=== PATIENT | female | born 1960 | race Caucasian/White ===

== ENCOUNTER → 2024-11-28 | Outpatient (CLI) | payer MEDICARE, SELFPAY ==
--- NOTE | 2024-11-28 | XR_ITS ---
Examination: Knees standing single view TECHNIQUE: PA standing knees bilateral single view flexion Exam date and time: November 28, 2024 1452 hours INDICATIONS: Left knee pain beginning one week ago. FINDINGS: Moderate osteopenia Moderate narrowing medial joint spaces bilaterally No fractures No dislocations IMPRESSION: Moderate narrowing medial joint spaces bilaterally
--- NOTE | 2024-11-28 13:26 | XR_ITS ---
Examination: Left knee 2 views Technique one AP lateral left knee 2 views Exam date and time: November 28, 2024 1444 hours INDICATIONS: Left knee pain beginning one week ago. FINDINGS: Mild osteoarthritis medial patellofemoral joints No fracture or dislocation Meniscus calcification IMPRESSION: Mild osteoarthritis medial patellofemoral joints
== END | disposition home or self-care (01) ==
PROVIDERS: PCP Orthopaedic Surgery; Referring Provider Orthopaedic Surgery; Visit Provider Orthopaedic Surgery
DX: M17.12 Unilateral primary osteoarthritis, left knee (principal); M25.862 Other specified joint disorders, left knee; M25.861 Other specified joint disorders, right knee
CPT/HCPCS: 73560; 73565

== ENCOUNTER → 2025-03-15 | Outpatient (CLI) | payer MEDICARE, SELFPAY ==
--- NOTE | 2025-03-15 12:00 | XR_ITS ---
Exam: MRI knee without contrast, left Date and time of exam: March 15, 2025 1310 hours INDICATIONS: Medial posterior knee pain joint clicking swelling instability 8 months Technique: Multiple axial, coronal, and sagittal sections on the knee have been obtained. T2-Weighted sagittal, fat-suppressed images, TR 3,500, TE 62, T2 weighted coronal fat-saturated images, TR 3,500, TE 62 Proton density sagittal sections, TR 1800, TE 31. T-1 weighted coronal images, TR 524, TE 13.0 Findings: Medial meniscus anterior horn abnormal, horizontal linear tear communicating inner margin. Medial meniscus, body large horizontal linear tear communicating inner margin, partially extruded from the joint space Posterior horn medial meniscus large horizontal linear tear communicating inferior articular surface, sagittal image 6. Lateral meniscus anterior horn is intact Lateral meniscus, body is intact Posterior horn lateral meniscus is intact Anterior cruciate ligament moderately attenuated. Posterior cruciate ligament appears intact Knee effusion is moderate with suprapatellar joint plica Quadriceps and patellar tendons appear intact. There is no evidence of tendinosis. Inflammatory change or fracture of Hoffa's fat pad is not seen. Medial patellar facet demonstrates moderate to severe thinning. Lateral patellar facet cartilage demonstrates moderate thinning. Trochlear cartilage demonstrates moderate thinning. Marrow signal increased about the medial joint space. Medial collateral ligament appears intact. No meniscocapsular separation is seen. Illiotibial band and fibular collateral ligament are intact. Biceps femoris tendons appear intact. Medial femoral condylar articular cartilage demonstrates severe thinning. Lateral femoral condylar articular cartilage demonstratesmoderate thinning. Tibial plateau cartilage demonstrates severe medial thinning. Impression: Extensive medial meniscus tears Severe narrowing medial joint space
== END | disposition home or self-care (01) ==
PROVIDERS: Referring Provider Orthopaedic Surgery; Visit Provider Orthopaedic Surgery
DX: S83.242A Other tear of medial meniscus, current injury, left knee, initial encounter (principal); X58.XXXA Exposure to other specified factors, initial encounter; M25.862 Other specified joint disorders, left knee
CPT/HCPCS: 73721